=== PATIENT | male | born 1995 | race African-American/Black ===

== ENCOUNTER 2017-05-22 20:40 | Emergency (ER) | payer MEDICAID, OTHER ==
[~2017-05-22] VITALS: Ht 190.5 cm; Wt 100.0 kg
[2017-05-22 21:42] VITALS: BP 122/75
== END 2017-05-22 23:52 | disposition home or self-care (01) ==
LOC: ER 21:53
DX: S01.511A Laceration without foreign body of lip, initial encounter (principal); L08.9 Local infection of the skin and subcutaneous tissue, unspecified; Y04.0XXA Assault by unarmed brawl or fight, initial encounter; Y93.89 Activity, other specified; Y92.89 Other specified places as the place of occurrence of the external cause; Y99.8 Other external cause status
CPT/HCPCS: 99283

== ENCOUNTER 2017-06-26 22:21 | Emergency (ER) | payer OTHER ==
[~2017-06-26] VITALS: Ht 190.5 cm; Wt 104.0 kg
[2017-06-27] MEDS ORDERED: ALBUTEROL (0.083%) 2.5MG/3ML NEB HHN STA (01:25)
[2017-06-27] MEDS ORDERED: PREDNISONE 20MG TABLET PO STA (01:25)
[2017-06-27] MEDS ORDERED: IPRATROPIUM BROMIDE (0.02%) 0.5MG/2.5ML NEB HHN STA (01:25)
[2017-06-27] MEDS ORDERED: IBUPROFEN 600MG TABLET PO ONE (01:30)
[2017-06-27 02:50] VITALS: BP 128/72
== END 2017-06-27 03:10 | disposition home or self-care (01) ==
LOC: ER 22:21
DX: R05 Cough (principal); J45.909 Unspecified asthma, uncomplicated; R07.9 Chest pain, unspecified; R50.9 Fever, unspecified
CPT/HCPCS: 94640; 99283; J7512; J7611

== ENCOUNTER 2022-03-01 23:27 | Emergency (ER) | payer OTHER ==
[~2022-03-01] VITALS: Ht 195.6 cm; Wt 127.0 kg
[2022-03-01 23:50] VITALS: BP 144/96
[2022-03-02] MEDS ORDERED: ALBUTEROL (0.083%) 2.5MG/3ML NEB HHN STA (00:52)
[2022-03-02] MEDS ORDERED: IPRATROPIUM BROMIDE (0.02%) 0.5MG/2.5ML NEB HHN STA (00:52)
[2022-03-02] MEDS ORDERED: ALBU6.7H3 INH (00:57)
[2022-03-02] MEDS ORDERED: DEXAMETHASONE 4MG/ML 1ML VIAL IM ONE (01:00)
== END 2022-03-02 01:43 ==
LOC: ER 23:27
DX: J45.901 Unspecified asthma with (acute) exacerbation (principal)
CPT/HCPCS: 93005; 94640; 96372; 99283; J1100; Z7610

== ENCOUNTER 2023-06-20 22:27 | Emergency (ER) | payer OTHER ==
[~2023-06-20] VITALS: Ht 195.6 cm; Wt 143.0 kg
[~2023-06-20 22:27] MED LIST: ALBU6.7H3 INH
[2023-06-20 22:57] VITALS: BP 147/90; PULSE 103; RESP 14; TEMP 98.5; O2SAT 97
== END 2023-06-21 03:38 | disposition left against medical advice (07) ==
LOC: ER 22:27
DX: R52 Pain, unspecified (principal); Z53.21 Procedure and treatment not carried out due to patient leaving prior to being seen by health care provider
CPT/HCPCS: 93005; 99281

== ENCOUNTER 2023-09-14 07:18 | Emergency (ER) | payer SELFPAY ==
[~2023-09-14] VITALS: Ht 193 cm; Wt 110.0 kg
[2023-09-14 07:22] VITALS: BP 154/96; PULSE 70; RESP 18; TEMP 98.1; O2SAT 98
[2023-09-14] MEDS ORDERED: KETOROLAC 30MG/ML VIAL IV STA (07:48)
[2023-09-14] MEDS ORDERED: METOCLOPRAMIDE HCL 10MG/2ML VIAL IV ONE (08:00)
[2023-09-14] MEDS ORDERED: SODIUM CHLORIDE 0.9% 1,000 ML IV ONE (08:00)
== END 2023-09-14 09:25 | disposition left against medical advice (07) ==
LOC: ER 07:18
DX: R51.9 Headache, unspecified (principal); J45.909 Unspecified asthma, uncomplicated
CPT/HCPCS: 99283; J1885; J2765; J7030